=== PATIENT | female | born 1945 | race Caucasian/White ===

== ENCOUNTER 2018-07-13 17:56 | Emergency (ER) | payer MEDICARE, OTHER ==
--- NOTE | 2018-07-13 18:35 | Emergency Department Record ---
History of Present Illness - General Chief Complaint: Abdominal Pain Stated Complaint: ABDOMINAL PAIN/GAS Time Seen by Provider: 07/13/18 18:26 Source: Patient, Family () Mode of Arrival: Ambulatory Limitations: No limitations - History of Present Illness Initial Comments: Pt relates 3 days of intermittent lower abdominal cramping/gas like pains that last 1-2 minutes when they come. No pain at this time. Pt has no fever, chills , nausea, vomiting, diarrhea. She has had a normal BM today and is passing gas as per normal She has hx of similar two years ago and had a CT at that time that was "normal". That episode resolved without treatment and was associated with diarrhea. She has had a GB surgery and appy. Pt states she had had only toast today because she is worried she will make pains worse. No urinary complaints. No blood in stool. Has never had a colonoscopy. No prior treatments or evaluation for this episode. Onset/Timin -: Days(s) Location: Diffuse Radiation: LUQ, LLQ Severity: Moderate Severity scale (1-10): 9 Quality: Aching, Cramping Improves With: Nothing Worsens With: Nothing - Related Data Hx Age of Menopause: 50 Allergies Allergy/AdvReac Type Severity Reaction Status Date / Time acetaminophen [From Vicodin] Allergy Severe RAPID Verified 07/13/18 18:06 HEART RATE hydrocodone bitartrate Allergy Severe RAPID Verified 07/13/18 18:06 [From Vicodin] HEART RATE diphenhydramine HCl AdvReac Mild HYPERSENSIT Verified 07/13/18 18:06 [From Benadryl] IVITY Travel Screening - Travel/Exposure Within Last 30 Days Have you traveled within the last 30 days?: No - Travel/Exposure Within Last Year Have you traveled outside the [place] in the last year?: No - Additonal Travel Details Have you been exposed to anyone with a communicable illness?: No - Travel Symptoms Symptom Screening: None Review of Systems Constitutional: Reports: As per HPI. Denies: Chills, Fever, Malaise, Night sweats, Weakness, Weight change Eyes: Reports: As per HPI. Denies: Eye discharge, Eye pain, Photophobia, Vision change ENT: Denies: Congestion, Ear pain Respiratory: Denies: Cough, Hemoptysis Cardiovascular: Denies: Arrhythmia, Chest pain, Palpitations Endocrine: Denies: Fatigue, Polydipsia, Polyuria Gastrointestinal: Reports: As per HPI. Denies: Constipation, Diarrhea, Hematochezia, Nausea, Vomiting Musculoskeletal: Denies: Arthralgia, Neck pain Skin: Denies: Bruising, Pruritus, Rash Neurological: Denies: Confusion, Headache, Seizure Psychiatric: Denies: Anxiety Hematological/Lymphatic: Denies: Anemia Past Medical History - SOCIAL HISTORY Smoking Status: Current every day smoker Alcohol Use: None Drug Use: None - RESPIRATORY Hx Respiratory Disorders: Yes Hx COPD: Yes Hx Dyspnea: Yes - CARDIOVASCULAR Hx Cardio Disorders: Yes Hx Hypertension: Yes - NEURO Hx Neuro Disorders: No - GI Hx GI Disorders: Yes Hx Irritable Bowel: Yes - Hx Genitourinary Disorders: No - ENDOCRINE Hx Endocrine Disorders: No Hx Diabetes: No Hx Thyroid Disease: No - MUSCULOSKELETAL Hx Musculoskeletal Disorders: No - PSYCH Hx Psych Problems: Yes Hx Anxiety: Yes - HEMATOLOGY/ONCOLOGY Hx Hematology/Oncology Disorders: No Family Medical History Any Significant Family History?: Yes Hx Cancer: Father Hx Dementia: Mother Hx Diabetes: Brother/Sister Hx Stroke: Brother/Sister Physical Exam - General General Appearance: Alert, Oriented x3, Cooperative, No acute distress - Head Head exam: Atraumatic - Eye Eye exam: Normal appearance, PERRL - ENT ENT exam: Normal exam, Mucous membranes moist, Normal external ear exam, Normal orophraynx, TM's normal bilaterally Ear exam: Normal external inspection. negative: External canal tenderness - Neck Neck exam: Normal inspection, Full ROM. negative: Tenderness - Respiratory Respiratory exam: Normal lung sounds bilaterally. negative: Respiratory distress - Cardiovascular Cardiovascular Exam: Regular rate, Normal rhythm, Normal heart sounds Peripheral Pulses: 2+: Radial (R), Radial (L) - GI/Abdominal GI/Abdominal exam: Soft, Normal bowel sounds. negative: Distended, Guarding, Rebound, Tenderness - Extremities Extremities exam: Normal inspection, Full ROM, Normal capillary refill. negative: Tenderness - Back Back exam: Reports: Normal inspection. Denies: Paraspinal tenderness, Tenderness - Neurological Neurological exam: Alert, Normal gait, Oriented X3 - Psychiatric Psychiatric exam: Normal affect, Normal mood - Skin Skin exam: Normal color. negative: Rash Course Vital Signs 07/13/18 17:59 Temperature 97.9 F Pulse Rate 114 H Respiratory 20 Rate Blood Pressure 141/89 Pulse Ox 94 L - Reevaluation(s) Reevaluation #1: 07/13/18 18:42 Pt seen and exam is benign - no pain. Labs and XRay ordered. Discussed that she should have a screening colonoscopy based on age. Reevaluation #2: 07/13/18 19:59 Pt remains without pain in ED. XRay with large stool without obstruction. Unable to urinate for lab. No urinary symptoms. Long discussion of plan for home. If any pain, vomiting, fever, or concerns to return to the ED at once. Otherwise we will see if her Milk of Mag will give her good BM. She will start her husbands OTC colace BID and increase water. She will discuss colonoscopy with her family doctors. Both agree with the plan. All questions reviewed and answered. Medical Decision Making - Management Options MDM Management: Additional Work-up Planned (e.g. ADM/Transfer/OP Study) - Data Complexity MDM Data: Labs Ordered and/or Reviewed, X-Ray Ordered and/or Reviewed - Lab Data Result diagrams: 07/13/18 18:42 07/13/18 18:42 - Radiology Data Radiology results: Report reviewed, Image reviewed (reviewed CT from prior visit. ) Disposition Disposition: Discharge Clinical Impression: Abdominal pain, Constipation by delayed colonic transit Disposition: Home, Self-Care Condition: (2) Stable Instructions: Constipation (ED), Abdominal Pain (ED) Additional Instructions: Increase fluids. Take over the counter stool softener. To see Dr. Pena in 1-2 days to discuss her syymptoms and re exam. Also to discuss colonoscopy as she has NEVER had one. Return to the ED at any time if pain or concerns. Forms: Patient Portal Access Time of Disposition: 20:03 Quality - Quality Measures Quality Measures: N/A - Blood Pressure Screening Does Patient Have Any of the Following: No, Active Dx of HTN Blood Pressure Classification: Pre-Hypertensive BP Reading Systolic Measurement: 141 Diastolic Measurement: 89 Screening for High Blood Pressure: Patient Exclusion, Hx of HTN [G9744]
[2018-07-13 18:46] LABS: BASO % 0.2 % (0-6); EOS % 0.2 % (0-6); GRAN % 75.5 % (47-80); HEMATOCRIT 42.5 % (35.0-47.0); HEMOGLOBIN 13.3 gm/dl (11.6-16.0); LYMPH % 17.2 % (16-45); MEAN CELL VOLUME 100.7 fl (81-97); MEAN CORPUSCULAR HEMOGLOBIN 31.5 pg (27-33); MEAN CORPUSCULAR HGB CONC 31.3 g/dl (32-36); MEAN PLATELET VOLUME 9.3 fl (7.4-10.4); MONO % 6.9 % (0-9); PLATELET COUNT 410 K/uL (130-400); RED BLOOD COUNT 4.22 M/uL (3.80-5.40); RED CELL DISTRIBUTION WIDTH 12.6 % (11.5-14.5); WHITE BLOOD COUNT W/O DIFF 9.6 K/uL (4.2-12.2)
[2018-07-13 18:56] LABS: BILIRUBIN,TOTAL 0.5 mg/dL (0.2-1.0); CREATININE 1.1 mg/dL (0.5-0.9)
[2018-07-13 18:57] LABS: TOTAL PROTEIN 8.3 g/dL (6.6-8.7)
[2018-07-13 19:02] LABS: ALB/GLOB RATIO 0.9 (1.1-1.8)
[2018-07-13] MEDS ORDERED: MAGNESIUM HYDROXIDE 30 ML UDC PO ONE (19:20)
--- NOTE | 2018-07-15 20:29 | RADIOLOGY REPORT ---
EXAM: ABDOMEN, ACUTE SERIES HISTORY: INTERMITTENT ABDOMINAL PAIN. TECHNIQUE: AP supine and upright views of the abdomen are obtained as well as an upright PA view of the chest. COMPARISON: CT abdomen and pelvis with contrast dated 11/18/2014. Two-view chest radiographic examination dated 12/08/2013. FINDINGS: Tiny hyperdensities are scattered throughout the lumen of the colon and rectum, likely relating to ingested material (Pepto Bismol). Several gas- distended, nondilated small bowel loops are present without worrisome air fluid levels. No mass, organomegaly, or suspicious calcification is seen. Surgical suture material is noted within the right upper quadrant abdominal wall status post cholecystectomy. No free intraperitoneal air. The heart is at the upper limits of normal in size. No pulmonary venous hypertension is seen. The thoracic aorta is tortuous and atherosclerotic. A small to moderate-sized hiatal hernia is again suspected. The lungs and pleural spaces are clear. IMPRESSION: 1. NONSPECIFIC, NONOBSTRUCTIVE BOWEL GAS PATTERN. MULTIPLE TINY HYPERDENSITIES SCATTERED THROUGHOUT THE LUMEN OF THE COLON AND RECTUM CONSISTENT WITH INGESTED MATERIAL. NO FREE INTRAPERITONEAL AIR. 2. NO EVIDENCE OF AN ACUTE INTRATHORACIC PROCESS. SMALL TO MODERATE-SIZED HIATAL HERNIA. JOB NUMBER: [id number] [facility]
== END 2018-07-13 20:14 | disposition home or self-care (01) ==
LOC: ER 17:56
DX: K59.01 Slow transit constipation (principal); R10.30 Lower abdominal pain, unspecified; J44.9 Chronic obstructive pulmonary disease, unspecified; I10 Essential (primary) hypertension; F17.210 Nicotine dependence, cigarettes, uncomplicated
CPT/HCPCS: 74022; 80053; 85025; 99283; 99284

== ENCOUNTER 2018-08-03 11:00 | Emergency (ER) | payer MEDICARE, OTHER ==
--- NOTE | 2018-08-03 11:25 | Emergency Department Record ---
History of Present Illness - General Chief complaint: Nausea, Vomiting, Diarrhea Stated complaint: VOMITING AND DIARRHEA Time Seen by Provider: 08/03/18 11:22 Source: Patient Mode of Arrival: Ambulatory Limitations: No limitations - History of Present Illness Initial comments: The patient is here due to a 4 day hx of intermittent nausea, vomiting and loose watery stools. It all started on Friday with dry heaves and mild vomiting of presumed bile per the patient. Since she has had 3-5 watery stools a day with intermittent cramping. Presently she denies any nausea, vomiting, or abdominal pain. Also there has been no reported fever, chills, dysuria, or back pain. The patient's only abdominal surgery is a GB removal. She denies taking any antibiotics prior to the onset of the illness 4 days ago. MD complaint: Diarrhea, Nausea, Vomiting Onset/Timin -: Days(s) Description of Vomiting: Watery Description of Diarrhea: Water Associated Abdominal Pain: Yes Location: Diffuse Radiation: None Severity: Mild Severity scale (1-10): 3 Quality: Cramping Improves with: None Worsens with: None Associated Symptoms: Loss of appetite, Nausea/vomiting, Weakness - Related Data Previous Rx's Medication Instructions Recorded Ondansetron [Zofran Odt] 4 mg SL .Q4-6H PRN #12 tab.rapdis 08/03/18 Allergies Allergy/AdvReac Type Severity Reaction Status Date / Time acetaminophen [From Vicodin] Allergy Severe RAPID Verified 08/03/18 11:05 HEART RATE hydrocodone bitartrate Allergy Severe RAPID Verified 08/03/18 11:05 [From Vicodin] HEART RATE diphenhydramine HCl AdvReac Mild HYPERSENSIT Verified 08/03/18 11:05 [From Benadryl] IVITY Travel Screening - Travel/Exposure Within Last 30 Days Have you traveled within the last 30 days?: No Review of Systems Constitutional: Denies: Chills, Fever Eyes: Denies: Eye discharge ENT: Denies: Congestion Respiratory: Denies: Cough, Dyspnea Cardiovascular: Denies: Arrhythmia Endocrine: Denies: Fatigue Gastrointestinal: Reports: Diarrhea, Nausea, Vomiting Genitourinary: Denies: Dysuria Musculoskeletal: Denies: Arthralgia, Back pain Skin: Denies: Bruising Past Medical History - SOCIAL HISTORY Smoking Status: Current every day smoker Alcohol Use: None Drug Use: None - RESPIRATORY Hx Respiratory Disorders: Yes Hx COPD: Yes Hx Dyspnea: Yes - CARDIOVASCULAR Hx Cardio Disorders: Yes Hx Hypertension: Yes - NEURO Hx Neuro Disorders: No - GI Hx GI Disorders: Yes Hx Irritable Bowel: Yes - Hx Genitourinary Disorders: No - ENDOCRINE Hx Endocrine Disorders: No Hx Diabetes: No Hx Thyroid Disease: No - MUSCULOSKELETAL Hx Musculoskeletal Disorders: No - PSYCH Hx Psych Problems: Yes Hx Anxiety: Yes - HEMATOLOGY/ONCOLOGY Hx Hematology/Oncology Disorders: No Family Medical History Any Significant Family History?: Yes Hx Cancer: Father Hx Dementia: Mother Hx Diabetes: Brother/Sister Hx Stroke: Brother/Sister Physical Exam - General General Appearance: Alert, Oriented x3, Cooperative, No acute distress - Head Head exam: Atraumatic, Normocephalic, Normal inspection - Eye Eye exam: Normal appearance, PERRL, EOMI - ENT Throat exam: Normal inspection. negative: Tonsillar erythema, Tonsillar exudate - Neck Neck exam: Normal inspection, Full ROM. negative: Tenderness - Respiratory Respiratory exam: Normal lung sounds bilaterally. negative: Respiratory distress - Cardiovascular Cardiovascular Exam: Regular rate, Normal rhythm, Normal heart sounds - GI/Abdominal GI/Abdominal exam: Soft, Normal bowel sounds. negative: Distended, Rigid, Tenderness - Extremities Extremities exam: Normal inspection, Full ROM, Normal capillary refill. negative: Tenderness - Neurological Neurological exam: Alert, Normal gait. negative: Abnormal gait, Motor sensory deficit - Psychiatric Psychiatric exam: negative: Anxious Course Vital Signs 08/03/18 11:06 Temperature 97.4 F L Pulse Rate 83 Respiratory 20 Rate Blood Pressure 142/64 Pulse Ox 96 - Reevaluation(s) Reevaluation #1: The patient is doing very well at this time. She is up walking with no problems and is drinking fluids well with no nausea or vomiting. She has had no diarrhea here in the ER. I did discuss the lab results with the mild dehydration and the need to continue to drink fluids. She is to use Zofran at home and return to the ER tomorrow morning for recheck. On abdominal exam her abdomen is very soft and nontender in all 4 quads. I did discuss the plan with the patient's PCP Dr. Pena and he does agree with the plan. 08/03/18 13:03 Medical Decision Making - Data Complexity MDM Data: Labs Ordered and/or Reviewed, X-Ray Ordered and/or Reviewed - Lab Data Result diagrams: 08/03/18 11:15 08/03/18 11:15 - Radiology Data Radiology results: Report reviewed (Abd CT: Neg for any acute changes, Liquid filled colon. ) Disposition Disposition: Discharge Clinical Impression: Gastroenteritis Disposition: Home, Self-Care Condition: (2) Stable Instructions: Acute Nausea and Vomiting (ED) Additional Instructions: Please drink plenty of fluids and use the Zofran if needed. Please return to the ER tomorrow morning for recheck and repeat lab work. Return sooner for any pain, fever, or vomiting. Prescriptions: Ondansetron [Zofran Odt] 4 mg SL .Q4-6H PRN #12 tab.rapdis PRN Reason: Nausea Forms: Patient Portal Access Time of Disposition: 13:08 Quality - Quality Measures Quality Measures: N/A - Blood Pressure Screening View Details: Yes Does Patient Have Any of the Following: No Blood Pressure Classification: Pre-Hypertensive BP Reading Systolic Measurement: 138 Diastolic Measurement: 87 Screening for High Blood Pressure: < Pre-Hypertensive BP, F/U Documented > [ G8950] Pre-Hypertensive Follow-up Interventions: Referral to alternative/primary care provider.
[2018-08-03] MEDS ORDERED: ONDANSETRON HCL IV 4 MG/2 ML VIAL IV ONE (11:27)
[2018-08-03] MEDS ORDERED: 0.9 % SODIUM CHLORIDE 1,000 ML BAG IV ONE ×2 (11:27→12:16)
[2018-08-03 11:41] LABS: HEMATOCRIT 42.5 % (35.0-47.0); MEAN CELL VOLUME 97.9 fl (81-97); MEAN CORPUSCULAR HEMOGLOBIN 32.3 pg (27-33); MEAN CORPUSCULAR HGB CONC 32.9 g/dl (32-36); MEAN PLATELET VOLUME 9.5 fl (7.4-10.4); PLATELET COUNT 397 K/uL (130-400); RED BLOOD COUNT 4.34 M/uL (3.80-5.40); RED CELL DISTRIBUTION WIDTH 12.4 % (11.5-14.5); WHITE BLOOD COUNT W/O DIFF 10.2 K/uL (4.2-12.2)
[2018-08-03 11:55] LABS: BILIRUBIN,TOTAL 0.9 mg/dL (0.2-1.0); CREATININE 1.5 mg/dL (0.5-0.9); TOTAL PROTEIN 8.3 g/dL (6.6-8.7)
[2018-08-03 12:00] LABS: BILIRUBIN,DIRECT 0.3 mg/dL (0-0.3)
[2018-08-03 12:31] LABS: URINE APPEARANCE CLEAR; URINE BILIRUBIN SMALL (NEGATIVE); URINE BLOOD NEGATIVE (NEGATIVE); URINE COLOR YELLOW; URINE GLUCOSE (UA) NEGATIVE (NEGATIVE); URINE KETONE 15 mg/dL (NEGATIVE); URINE LEUKOCYTE ESTERASE NEGATIVE (NEGATIVE); URINE NITRITE NEGATIVE (NEGATIVE); URINE PROTEIN NEGATIVE (NEGATIVE)
--- NOTE | 2018-08-04 19:46 | CT SCAN REPORT ---
EXAM: CT SCAN ABDOMEN/PELVIS WO CONTRAST HISTORY: ABDOMINAL PAIN, DIARRHEA. TECHNIQUE: Noncontrast CT abdomen and pelvis. COMPARISON: Abdominal radiographs 07/13/2018, CT abdomen and pelvis 11/18/2014. FINDINGS: Small to moderate hiatal hernia. Minor atelectasis or scarring in the lingula. Unremarkable appearance of the liver. Gallbladder is not visualized; correlate with surgical history. Unremarkable punctate calcified granulomas in the spleen ; otherwise unremarkable. Unremarkable adrenal glands and pancreas. The majority of the colon is distended with liquid, with relative under- distention of the sigmoid colon and rectum. Probable small stable lipomas within the ascending colon mohan. Numerous punctate hyperdensities along the mohan of the cecum, corresponding to hyperdensities on previous radiograph and possibly representing residual ingested material. Multiple liquid-containing nondilated small bowel loops are seen throughout the abdomen. A small duodenal diverticulum is noted. No free air or free fluid. Punctate 1 to 2 mm bilateral intrarenal calculi. Rounded indeterminate-density 1.9 cm structure along the lateral cortex of the inferior left kidney, which appears to correspond with a simple-appearing cortical cyst on 2014 CT comparison. Aortoiliac arterial access is diffusely calcified and non-aneurysmal. No intrapelvic mass identified. Urinary bladder is only minimally distended, no appreciable abnormality. Small fat-containing umbilical hernia. No acute osseous findings. IMPRESSION: 1. MILDLY DISTENDED, FLUID-FILLED APPEARANCE OF THE COLON; MAY BE SEEN WITH DIARRHEAL ILLNESS. NONSPECIFIC HYPERDENSITIES ALONG THE MOHAN OF THE CECUM, SIMILAR FROM COMPARISON RADIOGRAPHS AND POSSIBLY REPRESENTING INGESTED MATERIAL. 2. FLUID-CONTAINING NONDILATED SMALL BOWEL LOOPS; NONSPECIFIC. 3. BILATERAL NONOBSTRUCTING INTRARENAL CALCULI. 4. SMALL FAT-CONTAINING UMBILICAL HERNIA. 5. SMALL TO MODERATE HIATAL HERNIA. 6. THERE IS AN INDETERMINATE-DENSITY ROUND STRUCTURE IN THE INFERIOR LEFT KIDNEY, WHICH APPEARS TO CORRESPOND WITH A CYST ON 2015 CT COMPARISON. JOB [facility]BER: [id number] [facility]
== END 2018-08-03 13:17 | disposition home or self-care (01) ==
LOC: ER 11:00
DX: K52.9 Noninfective gastroenteritis and colitis, unspecified (principal); R11.2 Nausea with vomiting, unspecified; R53.1 Weakness; I10 Essential (primary) hypertension; F17.210 Nicotine dependence, cigarettes, uncomplicated
CPT/HCPCS: 74176; 80048; 80076; 81003; 83605; 83690; 85027; 96361; 96374; 99284; J2405; J7030

== ENCOUNTER 2018-08-04 08:43 | Emergency (ER) | payer MEDICARE, OTHER ==
--- NOTE | 2018-08-04 09:02 | Emergency Department Record ---
History of Present Illness - General Chief Complaint: Abdominal Pain Stated Complaint: ABD PAIN Time Seen by Provider: 08/04/18 08:50 Source: Patient Mode of Arrival: Ambulatory Limitations: No limitations - History of Present Illness Initial Comments: The patient is here for recheck due to a 4-5 days hx of first nausea, vomiting, and for the last 3 days loose watery stools. She was evaluated in the ER and had a neg CT yesterday but was mildly dehydrated. Today she is back for a recheck and states she is feeling better and her loose stools are improving. She has only had one stool today and no nausea, AP, vomiting or fever. MD Complaint: Abdominal pain Onset/Timin -: Days(s) Severity: Mild Severity scale (1-10): 6 Consistency: Constant Improves With: Nothing Worsens With: Nothing Associated Symptoms: Diarrhea - Related Data Hx Age of Menopause: 50 Previous Rx's Medication Instructions Recorded Ondansetron [Zofran Odt] 4 mg SL .Q4-6H PRN #12 tab.rapdis 08/03/18 Potassium Chloride 20 meq PO DAILY #7 tab.er.prt 08/04/18 Allergies Allergy/AdvReac Type Severity Reaction Status Date / Time acetaminophen [From Vicodin] Allergy Severe RAPID Verified 08/03/18 11:05 HEART RATE hydrocodone bitartrate Allergy Severe RAPID Verified 08/03/18 11:05 [From Vicodin] HEART RATE diphenhydramine HCl AdvReac Mild HYPERSENSIT Verified 08/03/18 11:05 [From Benadryl] IVITY Travel Screening - Travel/Exposure Within Last 30 Days Have you traveled within the last 30 days?: No - Travel/Exposure Within Last Year Have you traveled outside the [place] in the last year?: No - Additonal Travel Details Have you been exposed to anyone with a communicable illness?: No - Travel Symptoms Symptom Screening: Diarrhea Review of Systems Constitutional: Denies: Chills, Fever Eyes: Denies: Eye discharge ENT: Denies: Congestion Respiratory: Denies: Cough, Dyspnea Past Medical History - SOCIAL HISTORY Smoking Status: Current every day smoker Alcohol Use: None Drug Use: None - RESPIRATORY Hx Respiratory Disorders: Yes Hx COPD: Yes Hx Dyspnea: Yes - CARDIOVASCULAR Hx Cardio Disorders: Yes Hx Hypertension: Yes - NEURO Hx Neuro Disorders: No - GI Hx GI Disorders: Yes Hx Irritable Bowel: Yes - Hx Genitourinary Disorders: No - ENDOCRINE Hx Endocrine Disorders: No Hx Diabetes: No Hx Thyroid Disease: No - MUSCULOSKELETAL Hx Musculoskeletal Disorders: No - PSYCH Hx Psych Problems: Yes Hx Anxiety: Yes - HEMATOLOGY/ONCOLOGY Hx Hematology/Oncology Disorders: No Family Medical History Any Significant Family History?: No Hx Cancer: Father Hx Dementia: Mother Hx Diabetes: Brother/Sister Hx Stroke: Brother/Sister Physical Exam - General General Appearance: Alert, Oriented x3, Cooperative, No acute distress - Head Head exam: Atraumatic, Normocephalic, Normal inspection - Eye Eye exam: Normal appearance, PERRL, EOMI - ENT Throat exam: Normal inspection. negative: Tonsillar erythema, Tonsillar exudate - Neck Neck exam: Normal inspection, Full ROM. negative: Tenderness - Respiratory Respiratory exam: Normal lung sounds bilaterally. negative: Respiratory distress - Cardiovascular Cardiovascular Exam: Regular rate, Normal rhythm, Normal heart sounds - GI/Abdominal GI/Abdominal exam: Soft, Normal bowel sounds. negative: Rebound, Rigid, Tenderness - Extremities Extremities exam: Normal inspection, Full ROM, Normal capillary refill. negative: Tenderness - Neurological Neurological exam: Alert, Normal gait. negative: Abnormal gait, Motor sensory deficit Course Vital Signs 08/04/18 08/04/18 08:45 08:53 Temperature 97.9 F Pulse Rate 80 Respiratory 16 Rate Blood Pressure 144/84 Pulse Ox 93 L - Reevaluation(s) Reevaluation #1: The patient is doing very well at this time. She denies any nausea, vomiting, AP or any diarrhea here in the ER. I did explain that her lab tests are improving except for the low potassium. I will place the patient on oral potassium for home for 7 days and the patient is to see her PCP next week for recheck. 08/04/18 09:37 Medical Decision Making - Data Complexity MDM Data: Labs Ordered and/or Reviewed - Lab Data Result diagrams: 08/04/18 09:02 08/04/18 09:02 Disposition Disposition: Discharge Clinical Impression: Gastroenteritis Disposition: Home, Self-Care Condition: (2) Stable Instructions: Gastroenteritis (ED) Additional Instructions: Please continue your regular medicines and drink plenty of fluids. Please take the potassium daily for 7 days and see your family doctor next week for recheck. Return to the ER for any worsening symptoms. Prescriptions: Potassium Chloride 20 meq PO DAILY #7 tab.er.prt Forms: Patient Portal Access Time of Disposition: 09:39 Quality - Quality Measures Quality Measures: N/A - Blood Pressure Screening View Details: Yes Does Patient Have Any of the Following: No Blood Pressure Classification: Pre-Hypertensive BP Reading Systolic Measurement: 144 Diastolic Measurement: 84 Screening for High Blood Pressure: < Pre-Hypertensive BP, F/U Documented > [ G8950] Pre-Hypertensive Follow-up Interventions: Referral to alternative/primary care provider.
[2018-08-04 09:07] LABS: BASO % 0.2 % (0-6); EOS % 0.2 % (0-6); GRAN % 75.3 % (47-80); HEMATOCRIT 41.2 % (35.0-47.0); HEMOGLOBIN 13.4 gm/dl (11.6-16.0); LYMPH % 15.9 % (16-45); MEAN CELL VOLUME 98.1 fl (81-97); MEAN CORPUSCULAR HEMOGLOBIN 31.9 pg (27-33); MEAN CORPUSCULAR HGB CONC 32.5 g/dl (32-36); MEAN PLATELET VOLUME 9.1 fl (7.4-10.4); MONO % 8.4 % (0-9); PLATELET COUNT 343 K/uL (130-400); RED CELL DISTRIBUTION WIDTH 12.4 % (11.5-14.5); WHITE BLOOD COUNT W/O DIFF 9.5 K/uL (4.2-12.2)
[2018-08-04 09:16] LABS: BILIRUBIN,TOTAL 0.7 mg/dL (0.2-1.0); CREATININE 1.4 mg/dL (0.5-0.9)
[2018-08-04 09:17] LABS: TOTAL PROTEIN 7.5 g/dL (6.6-8.7)
[2018-08-04] MEDS ORDERED: POTASSIUM CHLORIDE 20 MEQ TABLET PO ONE (09:18)
[2018-08-04 09:22] LABS: ALBUMIN 3.8 g/dL (4.0-5.0)
== END 2018-08-04 09:47 | disposition home or self-care (01) ==
LOC: ER 08:43
DX: K52.9 Noninfective gastroenteritis and colitis, unspecified (principal); R11.2 Nausea with vomiting, unspecified; I10 Essential (primary) hypertension; F17.210 Nicotine dependence, cigarettes, uncomplicated
CPT/HCPCS: 80053; 85025; 86140; 99283

== ENCOUNTER 2018-08-07 14:56 | Emergency (ER) | payer MEDICARE, OTHER ==
[2018-08-07] MEDS ORDERED: 0.9 % SODIUM CHLORIDE 1,000 ML BAG IV ONE (15:25)
--- NOTE | 2018-08-07 15:27 | Emergency Department Record ---
History of Present Illness - General Chief Complaint: Abdominal Pain Stated Complaint: ABD PAIN Time Seen by Provider: 08/07/18 15:18 Source: Patient, RN notes reviewed Mode of Arrival: Ambulatory - History of Present Illness Initial Comments: patient states she has 5 loose stool in the last 24 hours and she isn't taking her potassium pills because it causes her to be sick. No nausea today and she is drinking water today. Primary Dr Pena, PS gb removal and appendectomy, tubal ligatin Onset/Timin -: Week(s) Location: LLQ, RLQ Severity scale (1-10): 6 Improves With: Rest Worsens With: Bowel movement, Movement Associated Symptoms: Diarrhea - Related Data Hx Age of Menopause: 50 Previous Rx's Medication Instructions Recorded Ondansetron [Zofran Odt] 4 mg SL .Q4-6H PRN #12 tab.rapdis 08/03/18 Potassium Chloride 20 meq PO DAILY #7 tab.er.prt 08/04/18 Allergies Allergy/AdvReac Type Severity Reaction Status Date / Time hydrocodone bitartrate Allergy Severe RAPID Verified 08/03/18 11:05 [From Vicodin] HEART RATE diphenhydramine HCl AdvReac Mild HYPERSENSIT Verified 08/03/18 11:05 [From Benadryl] IVITY Travel Screening - Travel/Exposure Within Last 30 Days Have you traveled within the last 30 days?: No - Travel Symptoms Symptom Screening: None Review of Systems Reviewed: No additional complaints except as noted below Constitutional: Reports: As per HPI. Denies: Chills, Fever, Malaise, Night sweats, Weakness, Weight change Eyes: Reports: As per HPI. Denies: Eye discharge, Eye pain, Photophobia, Vision change ENT: Reports: As per HPI. Denies: Congestion, Dental pain, Ear pain, Epistaxis , Hearing loss, Throat pain Respiratory: Reports: As per HPI. Denies: Cough, Dyspnea, Hemoptysis, Stridor, Wheezes Cardiovascular: Reports: As per HPI. Denies: Arrhythmia, Chest pain, Dyspnea on exertion, Edema, Murmurs, Orthopnea, Palpitations, Paroxysmal nocturnal dyspnea, Rheumatic Fever, Syncope Endocrine: Reports: As per HPI. Denies: Fatigue, Heat or cold intolerance, Polydipsia, Polyuria Gastrointestinal: Reports: As per HPI. Denies: Abdominal pain, Constipation, Diarrhea, Hematemesis, Hematochezia, Melena, Nausea, Vomiting Genitourinary: Reports: As per HPI. Denies: Abnormal menses, Discharge, Dyspareunia, Dysuria, Frequency, Hematuria, Incontinence, Retention, Urgency Musculoskeletal: Reports: As per HPI. Denies: Arthralgia, Back pain, Gout, Joint swelling, Myalgia, Neck pain Skin: Reports: As per HPI. Denies: Bruising, Change in color, Change in hair/ nails, Lesions, Pruritus, Rash Neurological: Reports: As per HPI. Denies: Abnormal gait, Confusion, Headache, Numbness, Paresthesias, Seizure, Tingling, Tremors, Vertigo, Weakness Psychiatric: Reports: As per HPI. Denies: Anxiety, Auditory hallucinations, Depression, Homicidal thoughts, Suicidal thoughts, Visual hallucinations Hematological/Lymphatic: Reports: As per HPI. Denies: Anemia, Blood Clots, Easy bleeding, Easy bruising, Swollen glands Past Medical History - SOCIAL HISTORY Smoking Status: Current every day smoker - RESPIRATORY Hx Respiratory Disorders: Yes Hx COPD: Yes Hx Dyspnea: Yes - CARDIOVASCULAR Hx Cardio Disorders: Yes Hx Hypertension: Yes - NEURO Hx Neuro Disorders: No - GI Hx GI Disorders: Yes Hx Irritable Bowel: Yes - Hx Genitourinary Disorders: No - ENDOCRINE Hx Endocrine Disorders: No Hx Diabetes: No Hx Thyroid Disease: No - MUSCULOSKELETAL Hx Musculoskeletal Disorders: No - PSYCH Hx Psych Problems: Yes Hx Anxiety: Yes - HEMATOLOGY/ONCOLOGY Hx Hematology/Oncology Disorders: No Family Medical History Any Significant Family History?: Yes Hx Cancer: Father Hx Dementia: Mother Hx Diabetes: Brother/Sister Hx Stroke: Brother/Sister Physical Exam - General General Appearance: Alert, Oriented x3, Cooperative, No acute distress - Head Head exam: Normal inspection - Eye Eye exam: Normal appearance, PERRL Pupils: Normal accommodation - ENT ENT exam: Normal exam, Mucous membranes moist, Normal external ear exam, Normal orophraynx, TM's normal bilaterally Ear exam: Normal external inspection. negative: External canal tenderness Nasal Exam: Normal inspection. negative: Discharge, Sinus tenderness Mouth exam: Normal external inspection, Tongue normal Teeth exam: Normal inspection. negative: Dental caries Throat exam: Normal inspection. negative: Tonsillar erythema, Tonsillar exudate - Neck Neck exam: Normal inspection, Full ROM. negative: Tenderness - Respiratory Respiratory exam: Normal lung sounds bilaterally. negative: Respiratory distress - Cardiovascular Cardiovascular Exam: Regular rate, Normal rhythm, Normal heart sounds - GI/Abdominal GI/Abdominal exam: Soft, Normal bowel sounds, Tenderness (lower abd pain bilateral) - Rectal Rectal exam: Deferred - exam: Deferred - Extremities Extremities exam: Normal inspection, Full ROM, Normal capillary refill. negative: Tenderness - Back Back exam: Reports: Normal inspection, Full ROM. Denies: Muscle spasm, Rash noted, Tenderness - Neurological Neurological exam: Alert, Normal gait, Oriented X3, Reflexes normal - Psychiatric Psychiatric exam: Normal affect, Normal mood - Skin Skin exam: Dry, Intact, Normal color, Warm Course Vital Signs 08/07/18 15:02 Temperature 97.5 F L Pulse Rate 109 H Respiratory 24 Rate Blood Pressure 100/67 Pulse Ox 96 - Reevaluation(s) Reevaluation #1: patient states she feels better 08/07/18 16:38 Medical Decision Making - Data Complexity MDM Data: Labs Ordered and/or Reviewed (wbc 8,200 , lipase 109 potassium 3.4) - Lab Data Result diagrams: 08/07/18 15:12 08/07/18 15:25 Disposition Clinical Impression: Gastroenteritis, Ulcerative colitis, Elevated lipase Disposition: Home, Self-Care Condition: (1) Good Instructions: Gastroenteritis (ED) Additional Instructions: clear liquids today and start metamucil one scoop per day follow up with family Dr in one week Forms: Patient Portal Access Time of Disposition: 16:37 Quality - Quality Measures Quality Measures: N/A - Blood Pressure Screening Does Patient Have Any of the Following: No Blood Pressure Classification: Normal BP Reading Systolic Measurement: 100 Diastolic Measurement: 67 Screening for High Blood Pressure: < Normal BP, F/U Not Required > [G8783]
[2018-08-07 16:02] LABS: HEMATOCRIT 44.5 % (35.0-47.0); HEMOGLOBIN 14.4 gm/dl (11.6-16.0); MEAN CELL VOLUME 98.7 fl (81-97); MEAN CORPUSCULAR HEMOGLOBIN 31.9 pg (27-33); MEAN CORPUSCULAR HGB CONC 32.4 g/dl (32-36); MEAN PLATELET VOLUME 10.1 fl (7.4-10.4); PLATELET COUNT 405 K/uL (130-400); RED BLOOD COUNT 4.51 M/uL (3.80-5.40); RED CELL DISTRIBUTION WIDTH 12.8 % (11.5-14.5); WHITE BLOOD COUNT W/O DIFF 8.2 K/uL (4.2-12.2)
[2018-08-07 16:16] LABS: BLOOD UREA NITROGEN 48 mg/dL (8-23); CREATININE 1.4 mg/dL (0.5-0.9); EST GLOMERULAR FILTRATION RATE 39 mL/min
[2018-08-07 16:17] LABS: LIPASE 109 U/L (13-60); TOTAL PROTEIN 8.3 g/dL (6.6-8.7)
[2018-08-07 16:17] LABS: PLATELET ESTIMATE NORMAL (NORMAL)
[2018-08-07 16:19] LABS: GLUCOSE,RANDOM 99 mg/dL (74-109)
[2018-08-07 16:21] LABS: ALT/SGPT 11 U/L (<33); AST/SGOT 14 U/L (10.0-35.0)
[2018-08-07 16:22] LABS: ALBUMIN 4.1 g/dL (4.0-5.0); ALKALINE PHOSPHATASE 75 U/L (35-104); BILIRUBIN,DIRECT < 0.2 mg/dL (0-0.3)
[2018-08-07] MEDS ORDERED: LORAZEPAM 2 MG/ML VIAL IV ONE (16:26)
== END 2018-08-07 17:12 | disposition home or self-care (01) ==
LOC: ER 14:56
DX: K51.90 Ulcerative colitis, unspecified, without complications (principal); K52.9 Noninfective gastroenteritis and colitis, unspecified; R74.8 Abnormal levels of other serum enzymes; R10.84 Generalized abdominal pain; J44.9 Chronic obstructive pulmonary disease, unspecified; F17.210 Nicotine dependence, cigarettes, uncomplicated
CPT/HCPCS: 99284 ×2; 96374; 96361; 83690; 80076; 80048; 85027; J2060; J7030

== ENCOUNTER 2018-08-16 14:27 | Emergency (ER) | payer MEDICARE, OTHER ==
--- NOTE | 2018-08-16 14:44 | Emergency Department Record ---
History of Present Illness - General Chief Complaint: Abdominal Pain Stated Complaint: ABDOMINAL PAIN,FEET SWELLING, BLACK BLUE TOES Time Seen by Provider: 08/16/18 14:37 Source: Patient, Family Mode of Arrival: Stretcher Limitations: No limitations - History of Present Illness Initial Comments: 72 yo female presents with weakness, nausea, not eating or drinking and leg swelling. The patient and her state the patient has not felt well since the beginning of the month when she had several days of nausea, vomiting and diarrhea. She was seen in the ED three times. She was later admitted to [facility]. She states she was admitted for 5 days. Her nausea, vomiting, and diarrhea have resolved but she is not eating. She is fatigued. She has leg swelling now the last 3-4 days. No vomiting but she is eating and drinking much less than normal. She has lower abdominal pain at times. She has bruising in the lower abdomen from the Lovenox shots at [facility]. PCP is Jean. Complaint: Abdominal pain, Other (Not eating or drinking, leg swelling.) Location: LLQ, RLQ Radiation: LLQ, RLQ Migration to: LLQ, RLQ Quality: Aching Consistency: Intermittent Improves With: Nothing Worsens With: Eating Associated Symptoms: Anorexia - Related Data Hx Age of Menopause: 50 Home Medications Medication Instructions Recorded Confirmed Last Taken Lidocaine Patch [Lidoderm] 1 ea TOP DAILY 08/16/18 08/16/18 Unknown Metoclopramide HCl [Metoclopramide 5 mg PO BID PRN 08/16/18 08/16/18 1 Day Ago HCl Odt] ~08/15/18 Previous Rx's Medication Instructions Recorded Ondansetron [Zofran Odt] 4 mg SL .Q4-6H PRN #12 tab.rapdis 08/03/18 Allergies Allergy/AdvReac Type Severity Reaction Status Date / Time hydrocodone bitartrate Allergy Severe RAPID Verified 08/16/18 14:49 [From Vicodin] HEART RATE diphenhydramine HCl AdvReac Mild HYPERSENSIT Verified 08/16/18 14:49 [From Benadryl] IVITY Review of Systems Constitutional: Reports: Malaise, Weakness. Denies: Chills, Fever Eyes: Denies: Eye discharge, Eye pain, Photophobia, Vision change ENT: Denies: Congestion, Throat pain Respiratory: Reports: Cough (chronic from COPD), Dyspnea (at her baseline per the patient) Cardiovascular: Reports: As per HPI, Edema. Denies: Chest pain, Palpitations, Syncope Endocrine: Reports: Fatigue Gastrointestinal: Reports: As per HPI, Abdominal pain Genitourinary: Denies: Dysuria Musculoskeletal: Reports: Myalgia. Denies: Arthralgia, Back pain Skin: Reports: As per HPI, Bruising. Denies: Change in color Neurological: Denies: Headache, Numbness, Tremors, Vertigo Psychiatric: Denies: Anxiety Hematological/Lymphatic: Denies: Easy bleeding, Easy bruising Past Medical History - SOCIAL HISTORY Smoking Status: Current every day smoker - RESPIRATORY Hx Respiratory Disorders: Yes Hx COPD: Yes Hx Dyspnea: Yes - CARDIOVASCULAR Hx Cardio Disorders: Yes Hx Hypertension: Yes - NEURO Hx Neuro Disorders: No - GI Hx GI Disorders: Yes Hx Irritable Bowel: Yes - Hx Genitourinary Disorders: No - ENDOCRINE Hx Endocrine Disorders: No Hx Diabetes: No Hx Thyroid Disease: No - MUSCULOSKELETAL Hx Musculoskeletal Disorders: No - PSYCH Hx Psych Problems: Yes Hx Anxiety: Yes - HEMATOLOGY/ONCOLOGY Hx Hematology/Oncology Disorders: No Family Medical History Hx Cancer: Father Hx Dementia: Mother Hx Diabetes: Brother/Sister Hx Stroke: Brother/Sister Physical Exam - General General Appearance: Alert, Oriented x3, Cooperative, No acute distress Limitations: No limitations - Head Head exam: Atraumatic, Normocephalic, Normal inspection - Eye Eye exam: Normal appearance, PERRL. negative: Conjunctival injection, Scleral icterus - ENT ENT exam: Normal exam, Mucous membranes moist Ear exam: Normal external inspection Nasal Exam: Normal inspection Mouth exam: Normal external inspection - Neck Neck exam: Normal inspection - Respiratory Respiratory exam: Decreased breath sounds, Prolonged expiratory, Rhonchi, Wheezes. negative: Normal lung sounds bilaterally, Accessory muscle use, Respiratory distress - Cardiovascular Cardiovascular Exam: Tachycardia Peripheral Pulses: 2+: Radial (R), Radial (L) - GI/Abdominal GI/Abdominal exam: Soft, Tenderness (mild lower tenderness to the suprapubic area). negative: Distended, Guarding, Rebound - Rectal Rectal exam: Deferred - exam: Deferred - Extremities Extremities exam: Pedal edema. negative: Calf tenderness, Joint swelling, Tenderness - Back Back exam: Denies: CVA tenderness (R), CVA tenderness (L) - Neurological Neurological exam: Alert, Oriented X3 - Skin Skin exam: Other (bruising from the lovenox) Course - Reevaluation(s) Reevaluation #1: The three July [facility] ED visits were reviewed 08/16/18 14:51 08/16/18 14:53 EKG #1: 14:48 Rate: 113 Rhythm: sinus [place]: normal Intervals: no acute changes ST segments: no acute changes 08/16/18 15:31 The CBC and CMP were reviewed No significant abnormality The renal function is improved to CR of 1.0 The BNP is 3150 (no old) 08/16/18 16:[address] scan demonstrated sigmoid wall thickening, colitis, with possible sinus tract vs fistula development between small bowel and the sigmoid, new ascites, 08/16/18 17:02 The case was discussed with Dr Hubbard. Given her co-morbidities I recommend transfer to [facility] ONE CALL at [facility] was contacted. 08/16/18 18:04 Dr Sotelo accepts the patient for transfer to [facility] 08/16/18 19:39 The patient was rechecked while waiting for transfer. Mild lower abdominal pain. No shortness of breath. Feet rechecked. [place] warm feet. Mild lower abdominal tenderness but very soft. C/O back pain due to laying all day. Medical Decision Making - Lab Data Result diagrams: 08/16/18 14:45 08/16/18 14:45 Disposition Disposition: Transfer Clinical Impression: Abdominal pain, Colitis, Fistula, COPD (chronic obstructive pulmonary disease) , Edema Disposition: Acute Care Hospital Transfer Transfer To: [facility] Reason For Transfer: Colitis with fistula Accepting Physician: Cat Time Discussed w/Accepting Physician: 18:04 Condition: (2) Stable Forms: Patient Portal Access Time of Disposition: 17:04 Quality - Quality Measures Quality Measures: N/A - Blood Pressure Screening Does Patient Have Any of the Following: Active Dx of HTN Blood Pressure Classification: Hypertensive Reading Systolic Measurement: 142 Diastolic Measurement: 97 Screening for High Blood Pressure: Patient Exclusion, Hx of HTN [G9744] Pre-Hypertensive Follow-up Interventions: Referral to alternative/primary care provider.
[2018-08-16] MEDS ORDERED: IPRATROPIUM/ALBUTEROL (0.5MG/3MG) NEB INH ONE (14:45)
[2018-08-16 14:58] LABS: HEMATOCRIT 38.9 % (35.0-47.0); HEMOGLOBIN 12.4 gm/dl (11.6-16.0); MEAN CORPUSCULAR HEMOGLOBIN 31.9 pg (27-33); MEAN CORPUSCULAR HGB CONC 31.9 g/dl (32-36); MEAN PLATELET VOLUME 9.1 fl (7.4-10.4); PLATELET COUNT 359 K/uL (130-400); RED BLOOD COUNT 3.89 M/uL (3.80-5.40); RED CELL DISTRIBUTION WIDTH 13.9 % (11.5-14.5); WHITE BLOOD COUNT W/O DIFF 4.9 K/uL (4.2-12.2)
[2018-08-16 15:10] LABS: INR 1.1; PARTIAL THROMBOPLASTIN TIME 23.6 SECONDS (24.5-39.1); PLATELET ESTIMATE NORMAL (NORMAL); PROTHROMBIN TIME (PATIENT) 10.9 SECONDS (9.5-12.1)
[2018-08-16 15:13] LABS: BLOOD UREA NITROGEN 30 mg/dL (8-23); EST GLOMERULAR FILTRATION RATE 58 mL/min
[2018-08-16 15:14] LABS: TOTAL PROTEIN 6.5 g/dL (6.6-8.7)
[2018-08-16 15:16] LABS: GLUCOSE,RANDOM 88 mg/dL (74-109)
[2018-08-16 15:18] LABS: ALB/GLOB RATIO 0.7 (1.1-1.8); ALBUMIN 2.7 g/dL (4.0-5.0); ALKALINE PHOSPHATASE 98 U/L (35-104); ALT/SGPT 22 U/L (<33); AST/SGOT 18 U/L (10.0-35.0)
[2018-08-16 16:48] LABS: URINE APPEARANCE CLOUDY; URINE BILIRUBIN SMALL (NEGATIVE); URINE BLOOD NEGATIVE (NEGATIVE); URINE COLOR YELLOW; URINE GLUCOSE (UA) NEGATIVE (NEGATIVE); URINE KETONE 15 mg/dL (NEGATIVE); URINE NITRITE NEGATIVE (NEGATIVE); URINE PROTEIN NEGATIVE (NEGATIVE)
[2018-08-16 16:54] LABS: URINE LEUKOCYTE ESTERASE TRACE (NEGATIVE)
[2018-08-16 16:55] LABS: URINE AMORPHOUS SEDIMENT 1+; URINE RBC NONE SEEN (NONE SEEN); URINE WBC 0 - 2 (0-2/hpf)
[2018-08-16] MEDS ORDERED: METRONIDAZOLE IVPB 500 MG/100 ML BAG IVPB ONE (18:03)
[2018-08-16] MEDS ORDERED: CIPROFLOXACIN LACTATE/D5W 400 MG/200 ML BAG IVPB ONE (18:03)
--- NOTE | 2018-08-17 14:57 | CT SCAN REPORT ---
EXAM: CT OF THE ABDOMEN AND PELVIS WITHOUT CONTRAST HISTORY: WORSENING ABDOMINAL PAIN AND DISTENTION WITH DIARRHEA. BILATERAL LOWER EXTREMITY EDEMA. RECENT SEPSIS. TECHNIQUE: Helical CT examination of the abdomen and pelvis was performed without oral or intravenous contrast administration. A lack of oral and IV contrast utilization limits evaluation of the bowel and solid viscera respectively. Comparison: CT of the abdomen and pelvis without contrast dated 08/03/18. FINDINGS: A large hiatal hernia is redemonstrated. Evaluation of the intrathoracic portion of the stomach is limited by lack of distention. Minor linear scarring versus atelectasis within the lung bases. No pleural or pericardial effusion. The heart is not enlarged. There is calcification of the mitral valve. Bilateral coronary artery calcifications redemonstrated. There is decreased density of the liver relative to the spleen. This appears new in the interval and is suspicious for steatosis. No new suspicious focal hepatic lesion. The gallbladder is not visualized, likely surgically absent. No biliary ductal dilatation. Healed granulomatous disease is again noted within an otherwise normal appearing spleen. The pancreas, adrenal glands, and kidneys are without new focal abnormality. Single 2-3 mm nonobstructing calculi are noted within the kidneys. There is again noted convexed contour deformity of the lower left kidney. This measures approximately 14 mm. It is indeterminate whether this is a lobulation or isodense, indeterminate mass. No new intraabdominal nor retroperitoneal lymphadenopathy. There is diffuse atherosclerosis without focal aneurysmal dilatation of the abdominal aorta nor iliac arteries. Minimal ectasia of the infrarenal abdominal aorta is present measuring 1.7 cm in maximum diameter while more proximally just below the renal arteries, the aorta measures 1.4 cm in diameter. No new solid pelvic mass nor adenopathy. There is again noted gas and fluid distention of the colon to the level of the sigmoid region where there is a relatively sharp zone of transition. There is new borderline to mild wall thickening of this distended segment of colon. In addition, there is prominence of the terminal ileum containing solid stool. An occasional diverticula are likely present within the sigmoid colon. There is evidence of either a sinus tract or fistulous tract extending from the left lateral aspect of the distal ileum within the left hemipelvis. This is in close proximity to the decompressed sigmoid colon. It contains a small amount of gas. It measures approximately 6 cm in craniocaudad dimension, 2.3 cm in maximum AP diameter and 1.1 cm in maximum transverse diameter. There is a small amount of free fluid within the pelvis, nonspecific. Trace ascites within Gutierrez's pouch is also suggested. New moderate anasarca. No new lytic or blastic bone lesion. IMPRESSION: 1. GAS AND FLUID DISTENTION OF THE COLON FROM THE LEVEL OF THE CECUM TO THE PROXIMAL SIGMOID REGION WHERE THERE IS A ZONE OF TRANSITION. MECHANICAL OBSTRUCTION AT THIS LEVEL IS POSSIBLE. THE DISTENDED PORTION OF THE COLON NOW APPEARS TO HAVE BORDERLINE TO MILD WALL THICKENING WITH COLITIS POSSIBLE. ADDITIONALLY, THERE IS PROMINENCE OF THE DISTAL ILEUM WITH SOLID STOOL WITHIN. THERE IS EITHER A SINUS TRACT ARISING FROM THE LEFT MARGIN OF THE DISTAL ILEUM COURSING WITHIN THE PELVIC SIDEWALL VERSUS FISTULA BETWEEN THE TERMINAL ILEUM AND SIGMOID COLON. 2. NEW MILD ASCITES. 3. MODERATE ANASARCA, NEW. 4. HEPATIC STEATOSIS. 5. LARGE HIATAL HERNIA. 6. BILATERAL NEPHROLITHIASIS REDEMONSTRATED. CONTOUR DEFORMITY OF THE LOWER LEFT KIDNEY REDEMONSTRATED UNCHANGED. IT IS INDETERMINATE WHETHER THIS IS A LOBULATION OR INDETERMINATE MASS. JOB NUMBER: [id number] [facility]
== END 2018-08-16 21:30 | disposition short-term general hospital (02) ==
LOC: ER 14:27
DX: K63.2 Fistula of intestine (principal); R10.30 Lower abdominal pain, unspecified; K52.9 Noninfective gastroenteritis and colitis, unspecified; J44.9 Chronic obstructive pulmonary disease, unspecified; R60.0 Localized edema; R53.1 Weakness; R11.0 Nausea; F17.210 Nicotine dependence, cigarettes, uncomplicated
CPT/HCPCS: 74176; 80053; 81001; 83880; 84484; 85027; 85610; 85730; 93005; 93010; 94640; 96365; 96366; 96368; 99285